=== PATIENT | male | born 1975 | race Asian ===

== ENCOUNTER → 2018-12-09 | Outpatient (CLI) | payer OTHER ==
--- NOTE | 2018-12-09 16:04 | RADIOLOGY IMAGING REPORT ---
FACILITY: [facility] - [place] PATIENT NAME: Casper Birch : 1975 MR: [id number] V: [id number] EXAM DATE: ORDERING PHYSICIAN: SLIM ARAGON TECHNOLOGIST: Location: [facility] Patient: Casper Birch : 1975 Visit/Account:[id number] Date of Sevice: 12/09/2018 CT Head without contrast Indication: Altered mental status. Dizziness. Comparison: None available Technique: Axial CT images were obtained through the brain from the skull base to the vertex without administration of IV contrast. Reformatted coronal and sagittal images were also obtained. One of the following dose optimization techniques was utilized in the performance of this exam: autom ated exposure control; adjustment of the mA and/or kV according to the patient's size; or use of an i terative reconstruction technique. Specific details can be referenced in the facility's radiology CT exam operational policy. Findings: No evidence of mass, mass effect, or midline shift. No acute intracranial hemorrhage or acute territorial infarction. No extra-axial fluid collection or hydrocephalus. No abnormal density. Pérez/white matter differentiat ion appears normal. Bony structures show no fractures or lesions. Rightward deviation nasal septum. Mucosal thickening seen both maxillary sinuses, left greater than right. The remaining sinuses and ma stoids visualized are clear. IMPRESSION: 1. No acute intracranial abnormality. 2. Bilateral maxillary sinus disease. Report Dictated By: Wayne Mccloud at 12/09/2018 3:48 PM Report E-Signed By: Wayne Mccloud at 12/09/2018 3:55 PM WSN:[id number]
== END ==
LOC: CT 15:23
PROVIDERS: ATTEND Nurse Practitioner Family
DX: J34.89 Other specified disorders of nose and nasal sinuses (principal)
CPT/HCPCS: 70450

== ENCOUNTER → 2018-12-09 | Outpatient (REF) | payer OTHER ==
[2018-12-09 15:36] LABS: PLATELET COUNT, AUTOMATED 216 K/uL (150-450)
== END ==
PROVIDERS: ATTEND Nurse Practitioner Family
DX: J32.0 Chronic maxillary sinusitis (principal); R41.82 Altered mental status, unspecified; R42 Dizziness and giddiness
CPT/HCPCS: 82040; 82247; 82310; 82374; 82435; 82565; 82947; 83036; 84075; 84132; 84155; 84295; 84443; 84450; 84460; 84484; 84520; 85025